=== PATIENT | male | born 1965 ===

== ENCOUNTER → 2016-12-01 | Outpatient (CLI) | payer OTHER ==
--- NOTE | 2016-12-01 16:09 | DIAGNOSTIC IMAGING REPORT ---
PROCEDURE: XR CHEST 2 VIEW INDICATION: SOB TECHNIQUE: PA and lateral views. COMPARISON: None. FINDINGS: Lungs are clear. Heart and mediastinum are normal. Thorax is normal. Calcified granuloma right upper lobe. IMPRESSION: 1. Negative chest.
== END ==
LOC: XR SRH 15:38
DX: R06.02 Shortness of breath (principal)

== ENCOUNTER 2017-03-04 14:41 | Emergency (ER) | payer OTHER ==
--- NOTE | 2017-03-04 16:05 | ED CLINICAL REPORT ---
Clinical Report - Physicians/Mid Levels [facility] [address] [place] [place] [address] 03/04/2017 14:42 [id number] Time Seen: 14:45; initial patient contact. Arrived- By private vehicle. Historian- patient. HISTORY OF PRESENT ILLNESS Chief Complaint: FLANK PAIN. At its maximum, severity described as moderate. When seen in the E.D., severity described as moderate. Modifying factors. Not worsened by anything. Not relieved by anything. This started about 2 days ago. It is described as stabbing. No radiation. It is described as located in the right flank. The patient has had nausea. No loss of appetite, vomiting or diarrhea. No recent travel. Similar symptoms previously: None. Recent medical care: Not recently seen/assessed. REVIEW OF SYSTEMS No constipation, difficulty with urination, pain with urination or hematuria. The patient has had urinary frequency (with foul smelling, dark urine). He has had fever and chills. All systems otherwise negative, except as recorded above. PAST HISTORY Asthma. Cellulitis. Surgeries: No history of previous surgery. Additional Surgeries: no known surgeries. Medications: None. Allergies: None. SOCIAL HISTORY Smoker - current status unknown. Regular alcohol use. No drug use. ADDITIONAL NOTES The nursing notes have been reviewed. PHYSICAL EXAM Vital Signs: 03/04/2017 14:48 BP: 138/83. HR: 83. RR: 19. O2 saturation: 96%. Temp: 98.2 F. Pain level now: 8/10. Have been reviewed as normal. Appearance: Alert. Oriented X3. No acute distress. Eyes: Eyes normal inspection. ENT: Dry mucous membranes present. CVS: Normal heart rate and rhythm. Heart sounds normal. Respiratory: No respiratory distress. Breath sounds normal. Abdomen: Soft and nontender. Bowel sounds normal. No organomegaly. No mass. Back: Moderate CVA tenderness on the right. Moderate tenderness in the right upper lumbar area. Mildly limited ROM in the back- in the lumbar spine: decreased flexion. No vertebral point tenderness. Skin: Skin warm and dry. Normal skin color. Extremities: No lower extremity edema. Neuro: Oriented X 3. No motor deficit. No sensory deficit. (Neg SLR's). LABS, X-RAYS, AND EKG Laboratory Tests: UA-Culture if indicated: (RONNY: 03/04/2017 14:50) ( MsgRcvd 03/04/2017 15:42) Final results Test Result Flag Units (Reference) URINE COLOR YELLOW URINE APPEARANCE CLEAR URINE GLUCOSE NEGATIVE (NEGATIVE) URINE BILIRUBIN NEGATIVE (NEGATIVE) URINE KETONE NEGATIVE (NEGATIVE) URINE SPECIFIC GRAVITY 1.020 (1.010-1.030) URINE PH 6.5 (5.0-8.0) URINE PROTEIN NEGATIVE (NEGATIVE) URINE UROBILINOGEN 0.2 EU/dL (0.2-1.0) URINE NITRITE NEGATIVE (NEGATIVE) URINE BLOOD NEGATIVE (NEGATIVE) URINE LEUK ESTERASE NEGATIVE (NEGATIVE) URINE RBC NONE SEEN rbc/hpf (0-1) URINE WBC RARE wbc/hpf (0-1) URINE EPITHELIAL CELLS RARE EPI/hpf (0-5) URINE BACTERIA NONE SEEN (NONE SEEN) URINE COMMENT CULT NOT INDICATED URINE CULTURES ARE SET-UP BASED ON THE FOLLOWING CRITERIA:POSITIVE NITRITEPOSITIVE LEUKOCYTE ESTERASEGREATER THAN 10 WHITE BLOOD CELLSMODERATE (2+) OR GREATER BACTERIA CBC w Diff: (RONNY: 03/04/2017 15:10) ( MsgRcvd 03/04/2017 15:34) Final results Test Result Flag Units (Reference) WHITE BLOOD COUNT 9.1 K/uL (4.5-11.5) RED BLOOD COUNT 4.71 M/uL (4.50-5.90) HEMOGLOBIN 14.2 gm/dL (13.5-17.5) HEMATOCRIT 42.6 % (41.0-53.0) MEAN CELL VOLUME 91 fL (80-100) MEAN CORPUSCULAR HGB 30 pg (26-34) MEAN CORPUSCULAR HGB CONC 33 g/dL (31-37) RED CELL DISTRIBUTION WIDTH 13.4 % (11.6-14.8) PLATELET COUNT 269 K/uL (150-400) NEUTROPHIL % 61.4 % (50-75) LYMPH % 26.3 % (25-40) MONO % 8.9 % (3-14) EOSINOPHIL % 3.2 % (0-4) BASOPHIL % 0.2 % (0-2) CMP: (RONNY: 03/04/2017 15:10) ( MsgRcvd 03/04/2017 15:41) Final results Test Result Flag Units (Reference) GLUCOSE 120 H mg/dL (70-110) BUN 16 mg/dL (7-18) CREATININE 0.9 mg/dL (0.6-1.3) Estimated GFR >60 mL/min Estimated GFR- >60 mL/min Note: Persistent reduction over 3 months in eGFR<60 mL/min/1.73 m2 defines CKD. Patients with eGFR values>=60 mL/min/1.73 m2 may also have CKD if evidence ofpersistent proteinuria. Additional information may be foundat www.kidney.org. SODIUM 143 mmol/L (136-145) POTASSIUM 3.9 mmol/L (3.5-5.1) CHLORIDE 105 mmol/L (98-107) CARBON DIOXIDE 28 mmol/L (21-32) CALCIUM 8.7 mg/dL (8.5-10.1) TOTAL PROTEIN 7.2 g/dL (6.4-8.2) ALBUMIN 3.3 g/dL (3.3-5.0) BILIRUBIN, TOTAL 0.3 mg/dL (0.0-1.0) ALKALINE PHOSPHATASE 81 U/L (46-116) AST (SGOT) 19 U/L (15-37) ALT (SGPT) 32 U/L (12-78) . PROGRESS AND PROCEDURES Course of Care: Toradol 30 mg IVP given. Physical exam findings are improved. Symptoms much better. Disposition: Discharged home in good and improved condition. Condition: good. CLINICAL IMPRESSION Muscle strain of the low back. INSTRUCTIONS No lifting greater than 10 lbs until well. Do not work today, tomorrow. Your Current Medications: CONTINUE TAKING THE FOLLOWING MEDICATIONS: None*. Prescription Medications: Baclofen 20 mg: take 1 orally every 8 hours. Dispense thirty (30). No refills. Diclofenac 50 mg tablets: take 1 tablet orally every 8 hours as needed for pain or stiffness. Dispense thirty (30). No refill. Follow-up: Follow up with your doctor in about two days. Call for an appointment. Screening today revealed the patient's blood pressure to be in the pre-hypertensive range. The patient should follow up with a primary care provider for blood pressure management. (Electronically signed by Siva Hilton Dr. 03/04/2017 16:07)
--- NOTE | 2017-03-04 16:05 | ED ORDER SUMMARY ---
..... Patient: NOELLE GOLD OrderSheet [facility] VisitID: [id number] [place] [address] 51y, M Registration Date/Time: 03/04/2017 ORDER SHEET Weight: 134.2 kg (stated) Allergies: None GENERAL ORDERS: CBC w Diff Urgent (15:03/04/2017 Jose Francisco Del Valle) (Ack 15:17 Becky) (15:19 KPage-Kuchan R.N.) CMP Urgent (15:03/04/2017 Jose Francisco Del Valle) (Ack 15:17 Becky) (15:19 KPage-Kuchan R.N.) UA-Culture if indicated Urgent (15:03/04/2017 Jose Francisco Del Valle) (Ack 15:17 Becky) (15:19 KPage-Kuchan R.N.) MEDICATION ORDERS: IV FLUIDS: IV NS : initial bolus none -, then 1000 mL/hr for X1 (NOW) (15:03/04/2017 Jose Francisco Del Valle) (Ack 15:02 KPage-Kuchan R.N.) (15:20 KPage-Kuchan R.N.) Toradol IV 30 mg (NOW) (15:03/04/2017 Jose Francisco Del Valle) (Ack 15:02 KPage-Kuchan R.N.) (15:21 KPage-Kuchan R.N.) ORDER SHEET NOTES: [Electronically signed by Siva Hilton Dr. (16:07 03/04/2017)] [Electronically signed by Beba Moy R.N. (17:23 03/04/2017)] [Electronically locked/signed by Beba Moy R.N. (17:03/04/2017)]
--- NOTE | 2017-03-04 16:05 | ED NURSING NOTES ---
Clinical Report - Nurses [facility] [address] [place] [address] 03/04/2017 14:42 Patient: NOELLE GOLD TRIAGE Triage time 14:48 Mar 04 2017. Chief Complaint: FLANK PAIN, DIFFICULTY VOIDING and DECREASED VOIDING (right sided flank pain with nausea x 3 days, accomp with difficulty voiding). Alert. No acute distress. SEPSIS SCREEN: Sepsis Screen. Negative (no infection suspected/documented). --14:52 Beba Moy R.N. 14:48 03/04/17. BP: 138/83. HR: 83. RR: 19. O2 saturation: 96%. Temp: 98.2 F. Pain level now: 810. --14:52 Beba Moy R.N. Weight: 134.2 kg stated. Height/Length: 72 inches Per Patient. BMI: 40.2. --14:50 Beba Moy R.N. Medications None. --14:50 Beba Moy R.N. Medication/allergy information source: the patient. --14:52 Beba Moy R.N. Allergies None. --14:50 Beba Moy R.N. History Arrived by private vehicle. Historian: patient. Accompanied by family and spouse. ( pain described as "spasms" that wax/wane). 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 SURGERY HX: No history of previous surgery. SOCIAL HX: Smoker- current status unknown. Alcohol use; consumes liquor daily. No recent travel. No infectious disease exposure. No known contact with a sick individual. ABUSE ASSESSMENT: No report of abuse. SELF HARM ASSESSMENT: A self harm assessment was performed. The patient answered "no" to the question "Have you recently felt down, depressed, or hopeless?", "Have you noticed less interest or pleasure in doing things?", "Do you have thoughts of harming or killing yourself?", "Are you here because you tried to hurt yourself?", "Have you ever tried to hurt yourself before today?", "Have you recently had thoughts about harming or killing others?" and "Do you have any dangerous items in your possession?". FALL RISK ASSESSMENT: Fall risk assessment completed. No fall risk identified. NUTRITIONAL RISK ASSESSMENT: The nutritional risk assessment revealed no deficiencies. FUNCTIONAL ASSESSMENT: Functional assessment: no impairments noted. LEARNING NEEDS ASSESSMENT: The learning needs assessment revealed no barriers. SKIN INTEGRITY ASSESSMENT: Skin integrity risk assessment completed. No skin integrity risk identified. --14:52 Beba Moy R.N. PROBLEMS: Asthma. Cellulitis. --14:50 Beba Moy R.N. ADDITIONAL SURGERIES: no known surgeries. Interventions ID band on patient. To treatment room. --14:52 Beba Moy R.N. PHYSICAL ASSESSMENT GENERAL / NEURO / PSYCH: Alert. Oriented X 4. Appears in pain. HEENT: Mucous membranes are pink. RESPIRATORY: Respirations not labored. Breath sounds within normal limits. CVS: Capillary refill less than 2 seconds. GI / : Abdomen soft and nontender. Bowel sounds within normal limits. SKIN: Skin is warm and dry. --14:53 Beba Moy R.N. Ambulatory to room. Patient gowned. --14:53 Beba Moy R.N. NURSING PROGRESS NOTES Pulse oximeter and NIBP monitor placed on patient; monitor alarms on. Patient gowned. Head of bed elevated. Reassurance given. Call light placed in reach. Patient ready for evaluation- chart flagged. Patient waiting for evaluation. --14:53 Beba Moy R.N. 15:10 03/04/2017 Site #1 started via IV in the right wrist with an 20g angiocath; one attempt. Blood drawn: rainbow set. Labeled in the presence of the patient and sent to the lab. Saline lock flushed with 10 mL saline. --15:20 Beba Moy R.N. 15:15 03/04/2017 Started bag #1 1000 mL IV Fluids IV NS (Saline); at 1000 mL/hr via site #1 via IV pump. Allergies verified and confirmed 5 rights. IV patency established. IV site checked: no pain, redness, or swelling. IV flushed thoroughly pre- and post-medication administration. --15:20 Beba Moy R.N. 15:16 03/04/2017 Toradol IVP 30 mg given. via site #1. Allergies verified and confirmed 5 rights. IV patency established. IV site checked: no pain, redness, or swelling. IV flushed thoroughly pre- and post-medication administration. IVP given by RN. --15:21 Beba Moy R.N. DISPOSITION / DISCHARGE 17:10 03/04/2017 Site #1 removed upon discharge. Bandaid applied. --17:20 Beba Moy R.N. Departure time: 17:11 Mar 04 2017. Condition at departure: improved. No learning barriers present. Discharge instructions provided and reviewed with the patient. Reviewed medication(s) course information. Work note given (per MD). Patient verbalized understanding. Written instructions provided in Romanian. The patient was discharged by the physician. He was discharged home and accompanied by spouse. He left the Emergency Department ambulatory and via private vehicle. Patient driving. ( pt reports improvement in pain and symptoms since presentation, pt given rx and f/u. pt ambulated to lobby with steady gait.). --17:22 Beba Moy R.N. 17:19 03/04/17. BP: 132/74. HR: 62. RR: 17. O2 saturation: 97%. Temp: 98 F. Pain level now: 02/16. 16:33 03/04/17. BP: 137/85. HR: 64. 14:48 03/04/17. BP: 138/83. HR: 83. RR: 19. O2 saturation: 96%. Temp: 98.2 F. Pain level now: 06/18. 14:47 03/04/17. BP: 122/89. HR: 83. RR: 18. O2 saturation: 97%. --17:22 Beba Moy R.N. Locked/Released at 03/04/2017 17:23 by Beba Moy R.N.
--- NOTE | 2017-03-04 16:05 | ED ORDER SUMMARY ---
..... Patient: NOELLE GOLD OrderSheet [facility] VisitID: [id number] [place] [address] 51y, M Registration Date/Time: 03/04/2017 ORDER SHEET Weight: 134.2 kg (stated) Allergies: None GENERAL ORDERS: CBC w Diff Urgent (15:03/04/2017 Jose Francisco Del Valle) (Ack 15:17 Becky) (15:19 KPage-Kuchan R.N.) CMP Urgent (15:03/04/2017 Jose Francisco Del Valle) (Ack 15:17 Becky) (15:19 KPage-Kuchan R.N.) UA-Culture if indicated Urgent (15:03/04/2017 Jose Francisco Del Valle) (Ack 15:17 Becky) (15:19 KPage-Kuchan R.N.) MEDICATION ORDERS: IV FLUIDS: IV NS : initial bolus none -, then 1000 mL/hr for X1 (NOW) (15:03/04/2017 Jose Francisco Del Valle) (Ack 15:02 KPage-Kuchan R.N.) (15:20 KPage-Kuchan R.N.) Toradol IV 30 mg (NOW) (15:03/04/2017 Jose Francisco Del Valle) (Ack 15:02 KPage-Kuchan R.N.) (15:21 KPage-Kuchan R.N.) ORDER SHEET NOTES: [Electronically signed by Siva Hilton Dr. (16:07 03/04/2017)] [Electronically signed by Beba Moy R.N. (17:23 03/04/2017)] [Electronically locked/signed by Beba Moy R.N. (17:03/04/2017)]
--- NOTE | 2017-03-04 17:23 | ED DISCHARGE INSTRUCTIONS ---
Patient: NOELLE GOLD General Instructions [facility] VisitID: [id number] [place] [address] 51y, M Registration Date/Time: 03/04/2017 Muscle strain of the low back. INSTRUCTIONS No lifting greater than 10 lbs until well. Do not work today, tomorrow. Your Current Medications: CONTINUE TAKING THE FOLLOWING MEDICATIONS: None*. Prescription Medications: Baclofen 20 mg: take 1 orally every 8 hours. Dispense thirty (30). No refills. Diclofenac 50 mg tablets: take 1 tablet orally every 8 hours as needed for pain or stiffness. Dispense thirty (30). No refill. Follow-up: Follow up with your doctor in about two days. Call for an appointment. Screening today revealed the patient's blood pressure to be in the pre-hypertensive range. The patient should follow up with a primary care provider for blood pressure management. ADDITIONAL INFORMATION Back Pain [Acute Or Chronic] Back pain is usually caused by an injury to the muscles or ligaments of the spine. Sometimes the disks that separate each bone in the spine may bulge and cause pain by pressing on a nearby nerve. Back pain may also appear after a sudden twisting/bending force (such as in a car accident), after a simple awkward movement, or lifting something heavy with poor body positioning. In either case, muscle spasm is often present and adds to the pain. Acute back pain usually gets better in one to two weeks. Back pain related to disk disease, arthritis in the spinal joints or spinal stenosis (narrowing of the spinal canal) can become chronic and last for months or years. Unless you had a physical injury (for example, a car accident or fall) X-rays are usually not ordered for the initial evaluation of back pain. If pain continues and does not respond to medical treatment, x-rays and other tests may be performed at a later time. Home Care: You may need to stay in bed the first few days. But, as soon as possible, begin sitting or walking to avoid problems with prolonged bed rest (muscle weakness, worsening back stiffness and pain, blood clots in the legs). When in bed, try to find a position of comfort. A firm mattress is best. Try lying flat on your back with pillows under your knees. You can also try lying on your side with your knees bent up towards your chest and a pillow between your knees. Avoid prolonged sitting. This puts more stress on the lower back than standing or walking. During the first two days after injury, apply an ICE PACK to the painful area for 20 minutes every 2-4 hours. This will reduce swelling and pain. HEAT (hot shower, hot bath or heating pad) works well for muscle spasm. You can start with ice, then switch to heat after two days. Some patients feel best alternating ice and heat treatments. Use the one method that feels the best to you. You may use acetaminophen (Tylenol) or ibuprofen (Motrin, Advil) to control pain, unless another pain medicine was prescribed. [NOTE: If you have chronic liver or kidney disease or ever had a stomach ulcer or GI bleeding, talk with your doctor before using these medicines.] Be aware of safe lifting methods and do not lift anything over 15 pounds until all the pain is gone. Follow Up with your doctor or this facility if your symptoms do not start to improve after one week. Physical therapy may be needed. [NOTE: If X-rays were taken, they will be reviewed by a radiologist. You will be notified of any new findings that may affect your care.] Get Prompt Medical Attention if any of the following occur: Pain becomes worse or spreads to your legs Weakness or numbness in one or both legs Loss of bowel or bladder control Numbness in the groin or genital area You have been given the following additional information: Back Pain (Acute Or Chronic) No lifting greater than 10 lbs until well. Do not work today, tomorrow. (Electronically signed by Siva Hilton Dr. 03/04/2017 16:07)
--- NOTE | 2017-03-04 17:24 | ED MED RECONCILIATION SUMMARY ---
Patient: NOELLE GOLD Medication Reconciliation Report [facility] VisitID: [id number] [address] [place] [address] 51y, M Registration Date/Time: 03/04/2017 Weight: 134.2 kg Height/Length: 72 in. BMI: 40.2 ALLERGIES: None The patient's Home Medications are listed below: NONE. The source(s) of the original Home Medication information: patient The following Medications were given to the patient in the Emergency Department: IV NS IV Fluids bolus 0, then 1000 mL/hr, administered: 03/04/2017 3:15:00 PM Toradol [IVP] IVP 30 mg, administered: 03/04/2017 3:16:00 PM The following Medications were prescribed to the patient: Baclofen 20 mg: take 1 orally every 8 hours. Dispense thirty (30). No refills. -- Siva Hilton Dr. Diclofenac 50 mg tablets: take 1 tablet orally every 8 hours as needed for pain or stiffness. Dispense thirty (30). No refill. -- Siva Hilton Dr.
--- NOTE | 2017-03-04 17:24 | ED MED RECONCILIATION SUMMARY ---
Patient: NOELLE GOLD Medication Reconciliation Report [facility] VisitID: [id number] [address] [place] [address] 51y, M Registration Date/Time: 03/04/2017 Weight: 134.2 kg Height/Length: 72 in. BMI: 40.2 ALLERGIES: None The patient's Home Medications are listed below: NONE. The source(s) of the original Home Medication information: patient The following Medications were given to the patient in the Emergency Department: IV NS IV Fluids bolus 0, then 1000 mL/hr, administered: 03/04/2017 3:15:00 PM Toradol [IVP] IVP 30 mg, administered: 03/04/2017 3:16:00 PM The following Medications were prescribed to the patient: Baclofen 20 mg: take 1 orally every 8 hours. Dispense thirty (30). No refills. -- Siva Hilton Dr. Diclofenac 50 mg tablets: take 1 tablet orally every 8 hours as needed for pain or stiffness. Dispense thirty (30). No refill. -- Siva Hilton Dr.
--- NOTE | 2017-03-04 17:24 | ED MAR SUMMARY ---
..... Medication Administration Record Merged With [facility] [address] [place] [address] Patient: NOELLE GOLD Visit ID: [id number] 51y, M Weight: 134.2 kg Height/Length: 72 in BMI: 40.2 ALLERGIES: None Start 15:15 03/04/2017 Beba Moy R.N. Medication Administered: IV NS (SALINE), Dose: IV Fluids, Rate: 1000 mL/hr, Dispensed: 1000 mL bag, Site: #1 right wrist. Medication Ordered: IV NS : initial bolus none -, then 1000 mL/hr for X1 (NOW). Given 15:16 03/04/2017 Beba Moy R.N. Medication Administered: TORADOL [IVP], Dose: 30 mg IVP, Site: #1 right wrist. Medication Ordered: Toradol IV 30 mg (NOW).
--- NOTE | 2017-03-04 17:24 | ED MAR SUMMARY ---
..... Medication Administration Record [facility] [address] [place] [address] Patient: NOELLE GOLD Visit ID: [id number] 51y, M Weight: 134.2 kg Height/Length: 72 in BMI: 40.2 ALLERGIES: None Start 15:15 03/04/2017 Beba Moy R.N. Medication Administered: IV NS (SALINE), Dose: IV Fluids, Rate: 1000 mL/hr, Dispensed: 1000 mL bag, Site: #1 right wrist. Medication Ordered: IV NS : initial bolus none -, then 1000 mL/hr for X1 (NOW). Given 15:16 03/04/2017 Beba Moy R.N. Medication Administered: TORADOL [IVP], Dose: 30 mg IVP, Site: #1 right wrist. Medication Ordered: Toradol IV 30 mg (NOW).
== END 2017-03-04 17:11 | disposition home or self-care (01) ==
LOC: ED SRH 14:41
DX: S39.012A Strain of muscle, fascia and tendon of lower back, initial encounter (principal)
CPT/HCPCS: 90004; 90100; 95059

== ENCOUNTER 2017-05-06 18:26 | Emergency (ER) | payer OTHER ==
--- NOTE | 2017-05-06 20:04 | ED CLINICAL REPORT ---
Clinical Report - Physicians/Mid Levels [facility] [address] [place] [address] 05/06/2017 18:29 [id number] Time Seen: 19:23 May 06 2017. Arrived- By private vehicle. Historian- patient. CPT: ER phys charges level 3 plus (#145683). Abscess complicated I&D (#[id number]). HISTORY OF PRESENT ILLNESS Chief Complaint: LESION and (abdominal wall.). 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 It is described as painful. It has been located on the right abdomen. A cause has been identified. (Started out as a pimple.). Similar symptoms previously: None. Recent medical care: Not recently seen/assessed. REVIEW OF SYSTEMS No fever, chills, sore throat, enlarged lymph nodes or abdominal pain. No nausea or vomiting. All systems otherwise negative, except as recorded above. PAST HISTORY MRSA. Medications: None. Allergies: No Known Drug Allergy. SOCIAL HISTORY Never smoker. stopped Meth 2 years ago. Had a problem with Crack Cocaine 20 years ago). No alcohol use. The patient was exposed to MRSA. ADDITIONAL NOTES The nursing notes have been reviewed. PHYSICAL EXAM Vital Signs: 05/06/2017 19:36 BP: 155/89. HR: 56. RR: 16. O2 saturation: 98%. Temp: 99 F. Pain level now: 4/10. Appearance: Alert. Anxious. Patient in mild distress. ENT: Pharynx normal. CVS: Normal heart rate and rhythm. Heart sounds normal. No cardiac murmur. Respiratory: No respiratory distress. Breath sounds normal. Chest nontender. Abdomen: Nontender. Skin: Single medium abscess with drainage to the abdomen. Extremities: Normal external inspection. Extremities nontender. Neuro: Oriented X 3. No motor deficit. No sensory deficit. LABS, X-RAYS, AND EKG Laboratory Tests: Culture, Wound Surface: (RONNY: 05/06/2017 19:50) ( MsgRcvd 05/06/2017 21:51) IP SPECIMEN DESCRIPTION: PURULENT DRAINAGE Test Result Flag Units (Reference) GRAM STAIN, WOUND, SUPERFICIAL DATE: 05/06/17 EPITHELIAL CELLS: RARE GRAM POSITIVE COCCI: RARE WHITE BLOOD CELLS: RARE PURULENT DRAINAGE. . PROGRESS AND PROCEDURES Incision & Drainage of Abscess: The abscess is located in the abdomen (lower). The risks of the procedure, benefits and alternatives were explained. Consent was obtained. Anesthesia provided using 2% lidocaine with bicarb. Skin cleansed with Betadine. The abscess was incised with a #11 surgical blade. A moderate amount of pus was drained. Cavity was irrigated with saline and packed with gauze. Sample obtained for cultures and gram stain. A dressing was applied. Estimated blood loss: 1 mL. Course of Care: Bactrim 2 by mouth Patient is stable. Patient/family counseled. Disposition: Discharged. Condition: stable and improved. CLINICAL IMPRESSION Single deep abscess to the abdominal wall with incision and drainage. INSTRUCTIONS Warnings: Further evaluation is necessary. GENERAL WARNINGS: Return or contact your physician immediately if your condition worsens or changes unexpectedly, if not improving as expected, or if other problems arise. Prescription Medications: Bactrim DS 800 mg / 160 mg: Take 1 tablet orally every 12 hours for 7 days. Dispense fourteen (14). No refills. Substitution is permissible. Follow-up: Follow up with your doctor Thursday in two days. Call for the next available appointment. Reason for referral: wound check. Understanding of the discharge instructions verbalized by patient. (Electronically signed by Hilton Valiente MD 05/06/2017 23:26)
--- NOTE | 2017-05-06 20:04 | ED ORDER SUMMARY ---
..... Patient: NOELLE GOLD OrderSheet [facility] VisitID: [id number] [address] [place] [address] 51y, M Registration Date/Time: 05/06/2017 ORDER SHEET Weight: 127.0 kg Allergies: No Known Drug Allergy GENERAL ORDERS: Culture, Wound Surface (Abdomen) (purulent drainage) Urgent (19:47 05/06/2017 Rachel Moon verbal order read back to Jocelyn MULLIGAN) (19:48 Rachel R.N.) Culture, Wound Deep (Abdomen) (swab) Urgent (20:02 05/06/2017 Jocelyn MULLIGAN) (Cancelled: Duplicate Order20:06 Rachel Moon) MEDICATION ORDERS: Bactrim DS PO (Tablet 800-160 mg) 2 tabs (NOW) (20:02 05/06/2017 Jocelyn MULLIGAN) (20:16 Rachel R.N.) IV FLUIDS: ORDER SHEET NOTES: [Electronically signed by Yvan Asher R.N. (20:40 05/06/2017)] [Electronically signed by Hilton Valiente MD (23:26 05/06/2017)] [Electronically locked/signed by Yvan Asher R.N. (20:40 05/06/2017)]
--- NOTE | 2017-05-06 20:04 | ED NURSING NOTES ---
Clinical Report - Nurses [facility] [address] [place] [address] 05/06/2017 18:29 [id number] TRI[facility] Triage time 19:30 May 06 2017. Acuity: LEVEL 3. Chief Complaint: SKIN LESION and . Abscess RLQ. Alert. JOHNNY COMA SCORE: Johnny Coma Scale: 15- eyes open spontaneously (4); best verbal response- oriented x 4 (5); best motor response- obeys commands (6). --19:45 Yvan Asher R.N. 19:36 05/06/17. BP: 155/89. HR: 56. RR: 16. O2 saturation: 98% on room air. Temp: 99 F (oral). Pain level now: 4/10. Additional comments: Abd abscess. --19:45 Yvan Asher R.N. Weight: 127 kg. Height/Length: 73 inches. BMI: 36.9. --19:43 Yvan Asher R.N. Medications None. --19:40 Yvan Asher R.N. Allergies No Known Drug Allergy. --19:40 Yvan Asher R.N. History Arrived by private vehicle. Historian: patient. Unaccompanied. Primary physician (none). ( Draining Abscess RLQ associated with pain). Reported as located on the abdomen. Onset. (about 3 days ago). It is described as burning and painful. 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 SOCIAL HX: Never smoker. History of occasional drug use: marijuana. (stopped Meth 2 years ago. Had a problem with Crack Cocaine 20 years ago). No alcohol use. The patient was exposed to MRSA. ABUSE ASSESSMENT: No report of abuse. FALL RISK ASSESSMENT: Fall risk assessment completed. No fall risk identified. NUTRITIONAL RISK ASSESSMENT: The nutritional risk assessment revealed no deficiencies. FUNCTIONAL ASSESSMENT: Functional assessment: no impairments noted. LEARNING NEEDS ASSESSMENT: The learning needs assessment revealed no barriers. SKIN INTEGRITY ASSESSMENT: Skin integrity risk assessment completed. No skin integrity risk identified. --19:45 Yvan Asher R.N. Interventions ID band on patient. To treatment room. --19:45 Yvan Asher R.N. PHYSICAL ASSESSMENT Ambulatory to room. GENERAL / NEURO / PSYCH: Alert. Oriented X 4. HEENT: Mucous membranes are pink. RESPIRATORY: Respirations not labored. CVS: Pulses within normal limits. GI / : Abdomen nontender. SKIN: Skin is warm and dry. Normal skin turgor. Purulent drainage (RLQ). Skin tenderness present. --19:46 Yvan Asher R.N. NURSING PROGRESS NOTES Monitoring of patient in place. Reassurance given. Patient identifiers checked. Call light placed in reach. Side rails up x 1. Bed placed in lowest position. Brakes of bed on. Patient ready for evaluation- chart flagged and ED physician notified. --19:46 Yvan Asher R.N. 20:00 05/06/17. I & D: Incision and Drainage of abscess performed by ED physician. Assisted by one nurse. The abscess is located on the (RLQ Abd). Preparation: Incision and Drainage tray set up with 2% lidocaine. Procedure; a moderate amount of pus was drained. Cavity was packed with gauze. Sample obtained for cultures and gram stain. A dressing was applied. Post-procedure: he was stable, no complications, bleeding controlled and dressing intact. Estimated blood loss: 2 mL. Total time of assist / procedure: 15 minutes. --20:05 Yvan Asher R.N. 20:06 05/06/2017 Bactrim DS (Sulfamethoxazole-TMP DS) PO Tablets 2 tab given. Allergies verified and confirmed 5 rights. --20:16 Yvan Asher R.N. DISPOSITION / DISCHARGE 20:05 05/06/17. BP: 130/76. HR: 56. RR: 16. O2 saturation: 99% on room air. Temp: 99 F. Pain level now: 12/19. --20:37 Yvan Asher R.N. Departure time: 2009. --20:37 Yvan Asher R.N. 20:10. Condition at departure: improved. No learning barriers present. Reviewed medication(s) dosing and course information (prescription given to pt). Reviewed wound care instructions (Supplies given to pt to change dressing and apply Bacitracin Ointment). Reviewed referral to family practice for followup. Patient verbalized understanding. Written instructions provided in Jordanian. The patient was discharged by the physician. He was discharged home and unaccompanied at time of discharge. He left the Emergency Department ambulatory and via private vehicle. Patient driving. FALL RISK ASSESSMENT: Fall risk assessment completed. No fall risk identified. --20:40 Yvan Asher R.N. Locked/Released at 05/06/2017 20:40 by Yvan Asher R.N.
--- NOTE | 2017-05-06 20:04 | ED CLINICAL REPORT ---
Clinical Report - Physicians/Mid Levels [facility] [address] [place] [address] 05/06/2017 18:29 [id number] Time Seen: 19:23 May 06 2017. Arrived- By private vehicle. Historian- patient. CPT: ER phys charges level 3 plus (#[id number]). Abscess complicated I&D (#[id number]). HISTORY OF PRESENT ILLNESS Chief Complaint: LESION and (abdominal wall.). 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 It is described as painful. It has been located on the right abdomen. A cause has been identified. (Started out as a pimple.). Similar symptoms previously: None. Recent medical care: Not recently seen/assessed. REVIEW OF SYSTEMS No fever, chills, sore throat, enlarged lymph nodes or abdominal pain. No nausea or vomiting. All systems otherwise negative, except as recorded above. PAST HISTORY MRSA. Medications: None. Allergies: No Known Drug Allergy. SOCIAL HISTORY Never smoker. stopped Meth 2 years ago. Had a problem with Crack Cocaine 20 years ago). No alcohol use. The patient was exposed to MRSA. ADDITIONAL NOTES The nursing notes have been reviewed. PHYSICAL EXAM Vital Signs: 05/06/2017 19:36 BP: 155/89. HR: 56. RR: 16. O2 saturation: 98%. Temp: 99 F. Pain level now: 4/10. Appearance: Alert. Anxious. Patient in mild distress. ENT: Pharynx normal. CVS: Normal heart rate and rhythm. Heart sounds normal. No cardiac murmur. Respiratory: No respiratory distress. Breath sounds normal. Chest nontender. Abdomen: Nontender. Skin: Single medium abscess with drainage to the abdomen. Extremities: Normal external inspection. Extremities nontender. Neuro: Oriented X 3. No motor deficit. No sensory deficit. LABS, X-RAYS, AND EKG Laboratory Tests: Culture, Wound Surface: (RONNY: 05/06/2017 19:50) ( MsgRcvd 05/06/2017 21:51) IP SPECIMEN DESCRIPTION: PURULENT DRAINAGE Test Result Flag Units (Reference) GRAM STAIN, WOUND, SUPERFICIAL DATE: 05/06/17 EPITHELIAL CELLS: RARE GRAM POSITIVE COCCI: RARE WHITE BLOOD CELLS: RARE PURULENT DRAINAGE. . PROGRESS AND PROCEDURES Incision & Drainage of Abscess: The abscess is located in the abdomen (lower). The risks of the procedure, benefits and alternatives were explained. Consent was obtained. Anesthesia provided using 2% lidocaine with bicarb. Skin cleansed with Betadine. The abscess was incised with a #11 surgical blade. A moderate amount of pus was drained. Cavity was irrigated with saline and packed with gauze. Sample obtained for cultures and gram stain. A dressing was applied. Estimated blood loss: 1 mL. Course of Care: Bactrim 2 by mouth Patient is stable. Patient/family counseled. Disposition: Discharged. Condition: stable and improved. CLINICAL IMPRESSION Single deep abscess to the abdominal wall with incision and drainage. INSTRUCTIONS Warnings: Further evaluation is necessary. GENERAL WARNINGS: Return or contact your physician immediately if your condition worsens or changes unexpectedly, if not improving as expected, or if other problems arise. Prescription Medications: Bactrim DS 800 mg / 160 mg: Take 1 tablet orally every 12 hours for 7 days. Dispense fourteen (14). No refills. Substitution is permissible. Follow-up: Follow up with your doctor Thursday in two days. Call for the next available appointment. Reason for referral: wound check. Understanding of the discharge instructions verbalized by patient. (Electronically signed by Hilton Valiente MD 05/06/2017 23:26)
--- NOTE | 2017-05-06 20:04 | ED ORDER SUMMARY ---
..... Patient: NOELLE GOLD OrderSheet [facility] VisitID: [id number] [address] [place] [address] 51y, M Registration Date/Time: 05/06/2017 ORDER SHEET Weight: 127.0 kg Allergies: No Known Drug Allergy GENERAL ORDERS: Culture, Wound Surface (Abdomen) (purulent drainage) Urgent (19:47 05/06/2017 Rachel Moon verbal order read back to Jocelyn MULLIGAN) (19:48 Rachel R.N.) Culture, Wound Deep (Abdomen) (swab) Urgent (20:02 05/06/2017 Jocelyn MULLIGAN) (Cancelled: Duplicate Order20:06 Rachel Moon) MEDICATION ORDERS: Bactrim DS PO (Tablet 800-160 mg) 2 tabs (NOW) (20:02 05/06/2017 Jocelyn MULLIGAN) (20:16 Rachel R.N.) IV FLUIDS: ORDER SHEET NOTES: [Electronically signed by Yvan Asher R.N. (20:40 05/06/2017)] [Electronically signed by Hilton Valiente MD (23:26 05/06/2017)] [Electronically locked/signed by Yvan Asher R.N. (20:40 05/06/2017)]
--- NOTE | 2017-05-06 20:04 | ED NURSING NOTES ---
Clinical Report - Nurses [facility] [address] [place] [address] 05/06/2017 18:29 [id number] TRI[facility] Triage time 19:30 May 06 2017. Acuity: LEVEL 3. Chief Complaint: SKIN LESION and . Abscess RLQ. Alert. JOHNNY COMA SCORE: Johnny Coma Scale: 15- eyes open spontaneously (4); best verbal response- oriented x 4 (5); best motor response- obeys commands (6). --19:45 Yvan Asher R.N. 19:36 05/06/17. BP: 155/89. HR: 56. RR: 16. O2 saturation: 98% on room air. Temp: 99 F (oral). Pain level now: 4/10. Additional comments: Abd abscess. --19:45 Yvan Asher R.N. Weight: 127 kg. Height/Length: 73 inches. BMI: 36.9. --19:43 Yvan Asher R.N. Medications None. --19:40 Yvan Asher R.N. Allergies No Known Drug Allergy. --19:40 Yvan Asher R.N. History Arrived by private vehicle. Historian: patient. Unaccompanied. Primary physician (none). ( Draining Abscess RLQ associated with pain). Reported as located on the abdomen. Onset. (about 3 days ago). It is described as burning and painful. 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 SOCIAL HX: Never smoker. History of occasional drug use: marijuana. (stopped Meth 2 years ago. Had a problem with Crack Cocaine 20 years ago). No alcohol use. The patient was exposed to MRSA. ABUSE ASSESSMENT: No report of abuse. FALL RISK ASSESSMENT: Fall risk assessment completed. No fall risk identified. NUTRITIONAL RISK ASSESSMENT: The nutritional risk assessment revealed no deficiencies. FUNCTIONAL ASSESSMENT: Functional assessment: no impairments noted. LEARNING NEEDS ASSESSMENT: The learning needs assessment revealed no barriers. SKIN INTEGRITY ASSESSMENT: Skin integrity risk assessment completed. No skin integrity risk identified. --19:45 Yvan Asher R.N. Interventions ID band on patient. To treatment room. --19:45 Yvan Asher R.N. PHYSICAL ASSESSMENT Ambulatory to room. GENERAL / NEURO / PSYCH: Alert. Oriented X 4. HEENT: Mucous membranes are pink. RESPIRATORY: Respirations not labored. CVS: Pulses within normal limits. GI / : Abdomen nontender. SKIN: Skin is warm and dry. Normal skin turgor. Purulent drainage (RLQ). Skin tenderness present. --19:46 Yvan Asher R.N. NURSING PROGRESS NOTES Monitoring of patient in place. Reassurance given. Patient identifiers checked. Call light placed in reach. Side rails up x 1. Bed placed in lowest position. Brakes of bed on. Patient ready for evaluation- chart flagged and ED physician notified. --19:46 Yvan Asher R.N. 20:00 05/06/17. I & D: Incision and Drainage of abscess performed by ED physician. Assisted by one nurse. The abscess is located on the (RLQ Abd). Preparation: Incision and Drainage tray set up with 2% lidocaine. Procedure; a moderate amount of pus was drained. Cavity was packed with gauze. Sample obtained for cultures and gram stain. A dressing was applied. Post-procedure: he was stable, no complications, bleeding controlled and dressing intact. Estimated blood loss: 2 mL. Total time of assist / procedure: 15 minutes. --20:05 Yvan Asher R.N. 20:06 05/06/2017 Bactrim DS (Sulfamethoxazole-TMP DS) PO Tablets 2 tab given. Allergies verified and confirmed 5 rights. --20:16 Yvan Asher R.N. DISPOSITION / DISCHARGE 20:05 05/06/17. BP: 130/76. HR: 56. RR: 16. O2 saturation: 99% on room air. Temp: 99 F. Pain level now: 12/19. --20:37 Yvan Asher R.N. Departure time: 2009. --20:37 Yvan Asher R.N. 20:10. Condition at departure: improved. No learning barriers present. Reviewed medication(s) dosing and course information (prescription given to pt). Reviewed wound care instructions (Supplies given to pt to change dressing and apply Bacitracin Ointment). Reviewed referral to family practice for followup. Patient verbalized understanding. Written instructions provided in Slovak. The patient was discharged by the physician. He was discharged home and unaccompanied at time of discharge. He left the Emergency Department ambulatory and via private vehicle. Patient driving. FALL RISK ASSESSMENT: Fall risk assessment completed. No fall risk identified. --20:40 Yvan Asher R.N. Locked/Released at 05/06/2017 20:40 by Yvan sAher R.N.
--- NOTE | 2017-05-06 23:26 | ED DISCHARGE INSTRUCTIONS ---
Patient: NOELLE GOLD General Instructions [facility] VisitID: [id number] [place] [address] 51y, M Registration Date/Time: 05/06/2017 Single deep abscess to the abdominal wall with incision and drainage. INSTRUCTIONS Warnings: Further evaluation is necessary. GENERAL WARNINGS: Return or contact your physician immediately if your condition worsens or changes unexpectedly, if not improving as expected, or if other problems arise. Prescription Medications: Bactrim DS 800 mg / 160 mg: Take 1 tablet orally every 12 hours for 7 days. Dispense fourteen (14). No refills. Substitution is permissible. Follow-up: Follow up with your doctor Thursday in two days. Call for the next available appointment. Reason for referral: wound check. Understanding of the discharge instructions verbalized by patient. ADDITIONAL INFORMATION Abscess [Incision & Drainage] An abscess (sometimes called a boil) occurs when bacteria get trapped under the skin and begin to grow. Pus forms inside the abscess as the body responds to the bacteria. An abscess can occur with an insect bite, ingrown hair, blocked oil gland, pimple, cyst, or puncture wound. Treatment of your abscess has required an incision to drain the pus. If the abscess pocket was large, a gauze packing may have been inserted. This will need to be removed and possibly replaced on your next visit. Antibiotics are not required in the treatment of a simple abscess, unless the infection is spreading into the skin around the wound (known as cellulitis). Healing of the wound will take about one to two weeks depending on the size of the abscess. Healthy tissue will grow from the bottom and sides of the opening until it seals over. Home Care: The wound may drain for the first two days. Cover the wound with a clean dry dressing. If the dressing becomes soaked with blood or pus, change it. If a gauze packing was placed inside the abscess cavity, you may be advised to remove it yourself. You may do this in the shower. Once the packing is removed, you should wash the area in the shower or bath 3 to 4 times a day, until the skin opening has closed. If you were prescribed antibiotics, take them as directed until they are all gone. You may use acetaminophen (Tylenol) or ibuprofen (Motrin, Advil) to control pain, unless another pain medicine was prescribed. [ NOTE: If you have liver disease or ever had a stomach ulcer, talk with your doctor before using these medicines.] Follow Up with your doctor as advised by our staff. If a gauze packing was inserted in your wound, it should be removed in 1-2 days. Check your wound every day for the signs of worsening infection listed below. Get Prompt Medical Attention if any of the following occur: Increasing redness or swelling Red streaks in the skin leading away from the wound Increasing local pain or swelling Continued pus draining from the wound two days after treatment Fever of 100.4F (38C) or higher, or as directed by your healthcare provider Staph Infection (MRSA) "Staph" is the short name for the common bacteria called "staphylococcus aureus". Staph bacteria are often present on the skin without causing an infection. If it gets under the skin an infection occurs. This causes redness, tenderness, swelling and sometimes fluid drainage. MRSA stands for "Methicillin-Resistant Staph Aureus". Unlike a common staph infection, MRSA bacteria are resistant to the usual antibiotics and harder to treat. Also, MRSA is more toxic than common staph bacteria. It can spread quickly throughout the body and cause a life-threatening illness. MRSA is spread to others by direct physical contact with the bacteria. MRSA can also be transmitted from items contaminated by a person who has the bacteria, such as bandages, towels, bed sheets, or sports equipment. It is not spread through the air. Once you have a MRSA skin infection, you are at risk of having it recur in the future. If MRSA infection is suspected, the doctor may take a wound culture to confirm the diagnosis. Any abscess will be drained. One or sometimes two antibiotics that work against MRSA will be prescribed. Home Care: 1) Take any antibiotics prescribed exactly as directed until they are gone. 2) Follow the same washing procedures as outlined for Household Members below. 3) Keep draining wounds covered with clean, dry bandages. Change dressings as they become soiled. 4) You and those in contact with you should wash their hands frequently with soap and warm water or use an alcohol-based hand ammunition and explosives handler. Do this after each time you change the bandage or touch the wound. 5) Avoid sharing personal items such as towels, washcloths, razors, clothing, or uniforms. Wash soiled sheets, towels or clothes in hot water with laundry detergent. Use an automatic clothes dryer set on high to kill any remaining bacteria. 6) Remove any artificial nails and nail mauritanian. 7) If you use a gym, wipe down equipment before and after each use. Treatment Of Household Members If you have been diagnosed with possible MRSA infection, those living with you are at higher risk of carrying the bacteria on their skin or in their nose, even if there is no sign of infection. Bacteria must be removed from the skin of all household members (including you) at the same time, so that it is not passed back and forth. Advise them to remove the bacteria as follows: Wash your whole body (scalp to toes) daily for five days with Hibiclens (chlorhexidine). Scrub fingernails with a brush for one minute twice a day. If any skin infections are present (boils, abscess, infected cut) these must be treated by a doctor. Washing alone will not treat a MRSA infection. Clean counter tops and children's toys; do not share personal items such as toothbrush and razors. It is okay to share glasses, plates, utensils. If antibiotic ointment was prescribed use it as directed. Follow Up with your doctor or as advised by our staff. If a wound culture was taken, call as directed in two days to obtain the results. If the culture result is positive for MRSA, tell medical personnel in the future that you were treated for this type of infection. Get Prompt Medical Attention if any of the following occur: -- Increasing redness, swelling or pain -- Red streaks in the skin around the wound -- Weakness or dizziness -- New appearance of pus or drainage from the wound -- New fever over 100.4 F (38.0 C) You have been given the following additional information: Abscess, Incision And Drainage MRSA Skin Infection, Suspected Or Confirmed (Electronically signed by Hilton Valiente MD 05/06/2017 23:26)
--- NOTE | 2017-05-06 23:26 | ED MAR SUMMARY ---
..... Medication Administration Record [facility] [address] [place] [address] Patient: NOELLE GOLD Visit ID: [id number] 51y, M Weight: 127.0 kg Height/Length: 73 in BMI: 36.9 ALLERGIES: No Known Drug Allergy Given 20:06 05/06/2017 Yvan Asher R.N. Medication Administered: BACTRIM DS [PO] (SULFAMETHOXAZOLE-TMP DS), Dose: 2 tab Tablets PO. Medication Ordered: Bactrim DS PO (Tablet 800-160 mg) 2 tabs (NOW).
--- NOTE | 2017-05-06 23:26 | ED MED RECONCILIATION SUMMARY ---
Patient: NOELLE GOLD Medication Reconciliation Report [facility] VisitID: [id number] [address] [place] [address] 51y, M Registration Date/Time: 05/06/2017 Weight: 127.0 kg Height/Length: 73 in. BMI: 36.9 ALLERGIES: No Known Drug Allergy The patient's Home Medications are listed below: NONE. The source(s) of the original Home Medication information: Not obtained. The following Medications were given to the patient in the Emergency Department: Bactrim DS [PO] PO 2 tab, administered: 05/06/2017 8:06:00 PM The following Medications were prescribed to the patient: Bactrim DS 800 mg / 160 mg: Take 1 tablet orally every 12 hours for 7 days. Dispense fourteen (14). No refills. Substitution is permissible. -- Hilton Valiente MD
--- NOTE | 2017-05-06 23:26 | ED MED RECONCILIATION SUMMARY ---
Patient: NOELLE GOLD Medication Reconciliation Report [facility] VisitID: [id number] [address] [place] [address] 51y, M Registration Date/Time: 05/06/2017 Weight: 127.0 kg Height/Length: 73 in. BMI: 36.9 ALLERGIES: No Known Drug Allergy The patient's Home Medications are listed below: NONE. The source(s) of the original Home Medication information: Not obtained. The following Medications were given to the patient in the Emergency Department: Bactrim DS [PO] PO 2 tab, administered: 05/06/2017 8:06:00 PM The following Medications were prescribed to the patient: Bactrim DS 800 mg / 160 mg: Take 1 tablet orally every 12 hours for 7 days. Dispense fourteen (14). No refills. Substitution is permissible. -- Hilton Valiente MD
--- NOTE | 2017-05-06 23:26 | ED MAR SUMMARY ---
..... Medication Administration Record [facility] [address] [place] [address] Patient: NOELLE GOLD Visit ID: [id number] 51y, M Weight: 127.0 kg Height/Length: 73 in BMI: 36.9 ALLERGIES: No Known Drug Allergy Given 20:06 05/06/2017 Yvan Asher R.N. Medication Administered: BACTRIM DS [PO] (SULFAMETHOXAZOLE-TMP DS), Dose: 2 tab Tablets PO. Medication Ordered: Bactrim DS PO (Tablet 800-160 mg) 2 tabs (NOW).
== END 2017-05-06 20:10 | disposition home or self-care (01) ==
LOC: ED SRH 18:26
DX: L02.211 Cutaneous abscess of abdominal wall (principal)
CPT/HCPCS: 90070; 90131; 90309; 90627; 91672